=== PATIENT | male | born 2000 | race Caucasian/White ===

== ENCOUNTER 2022-11-30 04:20 | Emergency (ER) | payer BC ==
[2022-11-30 04:40] VITALS: BP 139/89; PULSE 91; O2SAT 98
[2022-11-30] MEDS ORDERED: TORAdol 30 mg Injection IM ONE (05:10)
[2022-11-30] MEDS ORDERED: Augmentin 875-125 Tablet PO ONE (05:10)
--- NOTE | 2022-11-30 05:16 | ERPHSYRPT ---
- History of Present Illness Time Seen by Provider: 11/30/22 05:00 Source: patient Exam Limitations: no limitations Patient Subjective Stated Complaint: Pt reports he was trying to catch his girlfriends cat and when he caught it the cat bit him. Pt reports cat is up to date on all vaccines, including rabies. Triage Nursing Assessment: Pt alert and oriented x3. Ambulated to cot without difficulty. No apparent respiratory distress. No active bleeding from wound site. Physician History: 22-year-old [id number] presented in the ER with chief complaint of cat bite. Patient reports his cat is fully immunized, was walking outside and it took him almost 25 minutes to amberly his cat before he got it. Care was angry and bit him on the right hand at the base of thumb with puncture wounds on the proximal and dorsal aspect. Up-to-date with tetanus. Timing/Duration: today Quality: painful Severity: moderate Location: hands Possible Causes: other Associated Symptoms: swelling/mass/lumps Allergies/Adverse Reactions: No Known Drug Allergies Allergy (Unverified 11/30/22 04:28) Hx Tetanus, Diphtheria Vaccination/Date Given: Yes Hx Influenza Vaccination/Date Given: No Hx Pneumococcal Vaccination/Date Given: No Immunizations Up to Date: Yes Travel Risk - International Travel Have you traveled outside of the country in past 3 weeks: No - Coronavirus Screening Are you exhibiting any of the following symptoms?: No Close contact with a COVID-19 positive Pt in past 14-21 Days: No - Vaccine Status Have you recieved a Covid-19 vaccination: No - Review of Systems Constitutional: No Symptoms Ears, Nose, & Throat: No Symptoms Respiratory: No Symptoms Cardiac: No Symptoms Abdominal/Gastrointestinal: No Symptoms Musculoskeletal: Injury Skin: Rash, Skin Lesions Neurological: No Symptoms Psychological: No Symptoms Endocrine: No Symptoms Hematologic/Lymphatic: No Symptoms - Past Medical History Musculoskeletal History: Fractures Other Medical History: broke collar bone and left wrist 2017 - Past Surgical History Past Surgical History: Yes Other Surgical History: left wrist 2017, left thumb - Social History Smoking Status: Never smoker Exposure to second hand smoke: No Drug Use: none Patient Lives Alone: No - Nursing Vital Signs Nursing Vital Signs: Initial Vital Signs Temperature 98.2 F 11/30/22 04:29 Pulse Rate 91 H 11/30/22 04:29 Respiratory Rate 16 11/30/22 04:29 Blood Pressure 139/89 11/30/22 04:29 O2 Sat by Pulse Oximetry 98 11/30/22 04:29 Pain Scale Pain Intensity 4 - Physical Exam General Appearance: no apparent distress, alert Eye Exam: PERRL/EOMI Ears, Nose, Throat Exam: normal ENT inspection Neck Exam: normal inspection Respiratory Exam: normal breath sounds, lungs clear Cardiovascular Exam: regular rate/rhythm, normal heart sounds Extremity Exam: lacerations (Multiple puncture wounds on the dorsum and palmar aspect of right hand thenar eminence area with slow oozing. 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 Patient was apparently choosing cat for almost 25 minutes before he got and which aggravated cat and dog bit. Patient is up-to-date with tetanus. Obtain x-rays right hand which is negative for any acute fracture dislocation reviewed by me, official report is Any who wound is clean, given Toradol for symptomatic relief and started on Augmentin. Outpatient follow-up recommended. Discussed signs symptoms of worsening needing return to ER which he seems understanding. Stable for discharge. Counseled pt/family regarding: diagnosis, need for follow-up, rad results - Departure Departure Disposition: Home Clinical Impression: Cat bite of hand Condition: Stable Critical Care Time: No Referrals: RADHA MEADOWS NP [Primary Care Provider] - Follow up/PCP as directed (1- 2 days for reevaluation) Instructions: Animal Bites (DC) Additional Instructions: Take Tylenol/ibuprofen as needed for pain. Follow-up with primary care for reevaluation. Keep it clean, elevated, intermittent ice application. Follow signs for infection and return to ER for any worsening. Prescriptions: Ibuprofen 600 mg PO Q6HPRN PRN 10 Days #20 tablet PRN Reason: Pain Amox Tr/Potass Clav. 875 mg [Augmentin 875-125 Tablet] 875 mg PO BID #14 tablet
[2022-11-30] MEDS ORDERED: Augmentin 875-125 Tablet ONE (05:17)
[2022-11-30] MEDS ORDERED: TORAdol 30 mg Injection ONE (05:17)
--- NOTE | 2022-11-30 08:59 | XRAY ---
Indication: Cat bite. Comparison: None 3 view right hand demonstrates tiny subcutaneous emphysema projecting over base 1st metacarpal presumed laceration. Gas-forming infection not completely excluded. No other bony, articular, or soft tissue abnormalities.
== END 2022-11-30 05:32 | disposition home or self-care (01) ==
LOC: ED 04:20
DX: S60.571A Other superficial bite of hand of right hand, initial encounter (principal); W55.01XA Bitten by cat, initial encounter; Z28.310 Unvaccinated for COVID-19
CPT/HCPCS: 73130; 96372; 99283; J1885; A9270-GY